=== PATIENT | female | born 1970 | race Caucasian/White ===

== ENCOUNTER 2021-01-29 21:35 | Emergency (ER) | payer SELFPAY ==
[2021-01-29 21:42] VITALS: BP 160/96; PULSE 68; RESP 18; TEMP 36.7; O2SAT 98; BMI 38.0
--- NOTE | 2021-01-29 21:55 | ED_ITS ---
HPI - General Adult General: Chief complaint: General Medical Stated complaint: rt ear pain,& rt side throat pain Time Seen by Provider: 01/29/21 21:48 Source: patient Mode of arrival: ambulatory Limitations: no limitations History of Present Illness: HPI narrative: 10-year-old female states that she been having a sore throat and some pain in the right side of her neck and ear p ain for last 2 days. States pain sharp in nature denies any difficulty swallowing denies any shortness of breath denies any fever no cough she denies any vomiting or diarrhea she denies any worsening proving factor states pain currently is a 4 out of 10 seems to be worse with eating. Associated symptoms: Deny chest pain, dyspnea, headache(s), nausea, rash or vomiting Review of Systems Const: Denies: fever(s), chills, body aches or change in appetite Eyes: Denies: blurry vision or eye discomfort ENMT: Reports: throat pain and ear or mastoid pain Card: Denies: chest pain Resp: Denies: dyspnea GI: Denies: abdominal pain, nausea, vomiting or diarrhea : Denies: dysuria Musc: Denies: neck pain or back pain Skin/Breast: Denies: rash Neuro: Denies: headache(s) Psych: Denies: depression Josué/Lymph: Denies: easy bruising All/Imm: Denies: urticaria Physical Exam Const: COMMON NORMALS: no acute distress, patient oriented x3 and healthy appearing HENMT: COMMON NORMALS: normocephalic and atraumatic HEAD & SCALP: normocephalic and atraumatic OTHER: Erythema to posterior pharynx does have erythema to the right tympanic membrane as well. Eye: COMMON NORMALS: Equal, round and reactive pupils present and EOMs intact bilaterally PUPIL: Yes Equal, round and reactive pupils present Neck/C-Spine: COMMON NORMALS: full ROM and supple OTHER: Lymph node pa lpated right cervical region no warmth or redness no signs of abscess at this time no difficulty swallowing. Chest: COMMONS NORMALS: normal inspection of the chest and normal palpation of entire chest wall Resp: COMMON NORMALS: normal respiratory effort, No retractions, No use of a ccessory muscles and clear to auscultation bilaterally AUSCULTATION: clear to auscultation bilaterally Cardio: COMMON NORMALS: regular rate, regular rhythm and No murmurs present (Cardio) RATE: regular rate RHYTHM: regular rhythm GI: COMMON NORMALS: Normal to inspection, nondistended, normoactive bowel sounds present, Soft to palpation, non-tender and no masses PALPATION: Yes Soft to palpation Extremity: COMMON NORMALS: normal to inspection and full ROM Neuro: COMMON NORMALS: patient oriented x3, moves all extremities and no focal motor deficits Psych: COMMON NORMALS: mental status grossly normal, Normal thought process present and cooperative THOUGHT PROCESS: Normal thought process present Skin: COMMON NORMALS: no rashes or lesions noted and no wounds GENERAL SKIN EXAM: no rashes or lesions noted Course Vital Signs: Vital signs: Vital Signs Temperature 98.1 F 01/29/21 21:42 Pulse Rate 68 01/29/21 21:42 Respiratory Rate 18 01/29/21 21:42 Blood Pressure 160/96 01/29/21 21:42 Pulse Oximetry 98 01/29/21 21:42 MDM - General Adult MDM Narrative: Medical decision making narrative: Patient presents here with pharyngitis along with otitis media infection. She does have a palpable lymph node to the right side of her neck no signs of any abscess no signs of peritonsillar abscess or retropharyngeal abscess no change of voice here no difficulty with her secretions patient gave Decadron along with antibiotics inf ormed her she has any worsening symptoms including increased swelling to her neck she is return immediately she understands agrees to plan. Discharge Plan Discharge Patient Disposition: Home Clinical Impression: Lymphadenopathy, cervical Pharyngitis Qualifiers: Pharyngitis/tonsillitis etiology: unspecified etiology Qualified Code(s): J02.9 - Acute pharyngitis, unspecified Otitis media Qualifiers: Otitis media type: unspecified Laterality: right Qualified Code(s): H66.91 - Otitis media, unspecified, right ear Condition: Stable Prescriptions: New cephalexin 500 mg capsule 500 mg PO TID 7 Days Qty: 21 RF: 0 Naprosyn 500 mg tablet 500 mg PO BID PRN (Reason: pain) Qty: 20 RF: 0 Discharge Orders: Discharge ED (Routine); Ordered 01/29/21 Ordered By: Elizabeth Campoverde Discharge Diet: Advance as tolerated Discharge Activity: Resume usual activity Patient Instructions: Pharyngitis (ED), Lymphoscintigraphy (DC) Coding Level of Care Code ED Calender Inspector for Jeffrey Guthrie
[2021-01-29] MEDS: dexamethasone 10 mg/mL INJ IM (22:09)
[2021-01-29] MEDS: cephALEXin 500 mg Capsule PO (22:09)
[2021-01-29] MEDS: naproxen 500 mg Tablet PO (22:09)
[2021-01-29 22:30] VITALS: BP 158/94; PULSE 69; RESP 18; TEMP 36.7; O2SAT 98
== END 2021-01-29 22:32 | disposition home or self-care (01) ==
PROVIDERS: Emergency Provider Emergency Medicine
DX: J02.9 Acute pharyngitis, unspecified (principal); H66.91 Otitis media, unspecified, right ear; R59.1 Generalized enlarged lymph nodes
CPT/HCPCS: 96372; 99283; J1100

== ENCOUNTER 2021-03-25 09:16 | Outpatient (CLI) | payer OTHER, SELFPAY ==
--- NOTE | 2021-03-25 09:30 | MM_ITS ---
WS: [id number] BILATERAL DIGITAL DIAGNOSTIC MAMMOGRAM MAMMOGRAPHY WITH CAD CLINICAL INFORMATION: LT BREAST PAIN;FIBROCYSTIC BREAST CHANGES TECHNIQUE: Bilateral CC, MLO, and ML views. FINDINGS: Scattered fibroglandular densities bilaterally. Vascular calcification. No suspicious focal mass, asy mmetry, calcifications, or architectural distortion. Ultrasound is pending. ULTRASOUND BREAST BILATERAL TECHNIQUE: Ultrasound bilateral breast focused area of concern. CLINICAL INFORMATION: LT BREAST PAIN;FIBROCYSTIC BREAST CHANGES COMPARISON: None. FINDINGS: Ultrasound bilateral breasts. Ultrasound RIGHT breast at the 3-9 o'clock position and ultrasound LEFT breast at the 3-9 o'clock positions. Dense underlying parenchymal tissue. No cystic or solid lesions . No suspicious findings. MM/[place] [id number] IMPRESSION: BI-RADS: 2-Benign FOLLOW UP: 1 Year Follow-up Recommend return to annual screening mammography.
== END 2021-03-25 09:17 | disposition home or self-care (01) ==
PROVIDERS: Visit Provider Nurse Practitioner Family
DX: N64.4 Mastodynia (principal); N60.19 Diffuse cystic mastopathy of unspecified breast
CPT/HCPCS: 76642; 77066

== ENCOUNTER → 2023-03-30 09:54 | Outpatient (BNVA) | payer MEDICAID, SELFPAY | PROVIDERS: PCP Nurse Practitioner Family; Visit Provider Surgery | DX: Z12.11 Encounter for screening for malignant neoplasm of colon (principal) | CPT/HCPCS: 99024; 99213 ==

== ENCOUNTER 2023-07-01 06:44 | Day surgery (SDC) | payer MEDICAID, SELFPAY ==
--- NOTE | 2023-07-01 05:57 | W.PM.OPSFHP ---
Same Day Surgery H&P Indication for Procedure/HPI DATE OF PROCEDURE: July 01, 2023 CHIEF COMPLAINT/INDICATIONFOR SURGICAL PROCEDURE: danyell na dneed for screening colonoscopy PREOP DIAGNOSIS: gerd and need for screening colonoscopy PLANNED PROCEDURE: Operation Date: 07/01/23 07:40 Proposed Procedures p [id number] egd [id number] colon G0121 screen colon A risk Z12.11,K21.9(Not Applicable) - Sea Álvarez MD s Colonoscopy(Not Applicable) - Sea Álvarez MD Medications/Allergies* Home Medications Medication Instructions Recorded Confirmed Type cyclobenzaprine 5 mg tablet 5 mg PO TID PRN Muscle Spasm 11/18/22 06/30/23 History albuterol sulfate 90 mcg/actuation 1 inh inhalation QID PRN Shortness 03/30/23 06/30/23 History aerosol inhaler Of Breath Allergies/Adverse Reactions Allergy/AdvReac Type Severity Reaction Status Date / Time adhesive tape Allergy ALGY-Rash Verified 03/30/23 10:23 morphine Allergy Unknown Verified 03/30/23 10:23 poison henrik extract Allergy ALGY-Rash Verified 03/30/23 10:52 fiber glass Allergy ALGY-Rash Uncoded 03/30/23 10:23 Pertinent History/Comorbid Conditions* Social History Smoking and tobacco/nicotine status: never used tobacco/nicotine Alcohol intake: never Pertinent Exam Findings alert, oriented x 3, clear to auscultation bilaterally and regular rate & rhythm Recommendations Surgery/Procedure today Coding Level of Care Code Acute Code for Chg Fwd
[2023-07-01 07:01] VITALS: BP 143/97; PULSE 63; RESP 16; TEMP 36.4; O2SAT 97; BMI 36.8
--- NOTE | 2023-07-01 07:13 | ANES.PREANE2 ---
Pre-Anesthetic Assessment Height/Weight: Height 1.7 m Weight 106.594 kg Temp Pulse Resp BP Pulse Ox O2 Del Method 97.5 F L 63 16 143/97 97 Room Air 07/01/23 07:01 07/01/23 07:01 07/01/23 07:01 07/01/23 07:01 07/01/23 07:01 07/01/23 07:01 Preop Diagnosis: gerd and need for screening colonoscopy Operation Date: 07/01/23 07:40 Proposed Procedures p [id number] egd [id number] colon G0121 screen colon A risk Z12.11,K21.9(Not Applicable) - Sea Álvarez MD s Colonoscopy(Not Applicable) - Sea Álvarez MD Familial anesthetic complications: none Was Beta Adriana taken within 24 hours: N/A Was Clonidine taken within 24 hours: N/A Last intake: Intake Last Liquid Date 06/30/23 Last Liquid Time 22:00 Last Solid Date 06/29/23 Last Solid Time 18:00 Social No alcohol and No tobacco Exam alert, oriented x 3, clear to auscultation bilaterally and regular rate & rhythm Airway Submandibular: within normal limits Cervical ROM: within normal limits Mallampati: Class II Dentition: full Pulmonary Exertional Dyspnea CV/HEM Hypertension None reported Hepatic None reported GI Gastroesophageal Reflux Disease Metabolic Hyperlipidemia and Morbid Obesity [facility] Lower Back Pain Anesthetic Plan ASA status: 2 Anesthesia: MAC Risk of > 500 ml blood loss (7ml/kg in children): No Medications/Allergies Home Medications Medication Instructions Recorded Confirmed Last Taken Type cyclobenzaprine 5 mg tablet 5 mg PO TID PRN Muscle Spasm 11/18/22 07/01/23 1 Month Ago History ~06/01/23 albuterol sulfate 90 mcg/actuation 1 inh inhalation QID PRN Shortness 03/30/23 07/01/23 6 Months Ago History aerosol inhaler Of Breath ~12/31/22 pantoprazole 40 mg tablet,delayed 40 mg PO BID 6 weeks #84 tabs 03/30/23 06/30/23 06/30/23 Rx release (Protonix) Allergies Allergy/AdvReac Type Severity Reaction Status Date / Time adhesive tape Allergy ALGY-Rash Verified 03/30/23 10:23 morphine Allergy Unknown Verified 03/30/23 10:23 poison henrik extract Allergy ALGY-Rash Verified 03/30/23 10:52 fiber glass Allergy ALGY-Rash Uncoded 03/30/23 10:23 [facility] Anesthesia Social History Smoking and tobacco/nicotine status: never used tobacco/nicotine Alcohol intake: never Data Anesthesia Cardiac Studies: No Data to Display
[2023-07-01 07:14] LABS: OR HCG Qualitative Urine Negative (Negative)
[2023-07-01] MEDS: sodium chloride 0.9% 1,000 ML 30 ML IV (07:17)
[2023-07-01 08:45] VITALS: BP 114/69; PULSE 58; RESP 12; TEMP 36.3; O2SAT 98
[2023-07-01 09:18] VITALS: BP 128/86; PULSE 61; RESP 18; O2SAT 100
--- NOTE | 2023-07-01 09:30 | ANE.PACU2 ---
Inpatient post-anesthesia follow up: Airway intact: Yes Vital signs: Temperature 97.3 F Pulse Rate 61 Respiratory Rate 18 Blood Pressure 128/86 Pulse Oximetry 100 Oxygen Delivery Me thod Room Air Oxygen Flow Rate Fraction of Inspir ed Oxygen Hydration adequate: Yes Nausea and vomiting: No Pain level: 1 Mental status: Baseline
== END 2023-07-01 09:30 | disposition home or self-care (01) ==
PROVIDERS: Anesthesiology; PCP Nurse Practitioner Family; Visit Provider Surgery
PROC: 0DJ08ZZ Inspection of Upper Intestinal Tract, Via Natural or Artificial Opening Endoscopic (ICD-10-PCS; CPT 43235; principal; 2023-07-01 07:40)
PROC: 0DJD8ZZ Inspection of Lower Intestinal Tract, Via Natural or Artificial Opening Endoscopic (ICD-10-PCS; CPT 45378; 2023-07-01 07:40)
DX: Z12.11 Encounter for screening for malignant neoplasm of colon (principal); K21.9 Gastro-esophageal reflux disease without esophagitis; K44.9 Diaphragmatic hernia without obstruction or gangrene; K29.50 Unspecified chronic gastritis without bleeding; D12.8 Benign neoplasm of rectum; D12.5 Benign neoplasm of sigmoid colon; I10 Essential (primary) hypertension; E78.5 Hyperlipidemia, unspecified; E66.01 Morbid (severe) obesity due to excess calories; Z68.36 Body mass index [BMI] 36.0-36.9, adult
CPT/HCPCS: 43239; 43251; 45380; 45385; 81025; 88305; 88342; J2704; J7030

== ENCOUNTER 2023-11-23 16:09 | Outpatient (CLI) | payer MEDICAID, SELFPAY ==
--- NOTE | 2023-11-23 16:13 | XRR_ITS ---
PROCEDURE INFORMATION: Exam: XR Right Foot Exam date and time: 11/23/2023 4:34 PM Age: 53 years old Clinical indication: Pain; Foot; Right; Additional info: Foot joint pain TECHNIQUE: Imaging protocol: Radiologic exam of the right foot. Views: 3 or more views. COMPARISON: No relevant prior studies available. FINDINGS: Bones/joints: Heel spur. Os peroneus. Mild scattered degenerative change. Soft tissues: See Bones/joints finding. XR/XR foot RT min 3V* [id number] IMPRESSION: No acute findings.
== END 2023-11-23 16:10 | disposition home or self-care (01) ==
LOC: RAD 16:10
PROVIDERS: PCP Nurse Practitioner Family; Visit Provider Nurse Practitioner Family
DX: M79.671 Pain in right foot (principal)
CPT/HCPCS: 73630

== ENCOUNTER 2024-06-03 22:05 | Emergency (ER) | payer MEDICAID, SELFPAY ==
[2024-06-03 22:13] VITALS: BP 143/77; PULSE 54; RESP 18; TEMP 36.7; O2SAT 98; BMI 38.7
[2024-06-03 23:46] VITALS: BP 137/88; PULSE 55; O2SAT 96
--- NOTE | 2024-06-03 23:52 | ED_ITS ---
HPI - URI/Sore Throat General: Chief Complaint: Ear Stated Complaint: Throat sore tongue discolored Time Seen by Provider: 06/03/24 23:18 History of Present Illness: 53-year-old female comes in today with c omplaints of a white coating to her tongue and sore throat. Patient appears nontoxic. Patient reports no recent infection or use of steroids or use of inhaler. Related Data Home Medications ?Medication ?Instructions ?Recorded ?Confirmed cyclobenzaprine 5 mg tablet 5 mg PO TID PRN Muscle Spa sm 11/18/22 01/29/24 albuterol sulfate 90 mcg/actuation 1 inh inhalation QI D PRN Shortness 03/30/23 01/29/24 aerosol inhaler Of Breath Previous Rx's ?Medication ?Instructions ?Recorded pantoprazole 40 mg tablet,delayed 40 mg PO ONCE 30 day s #30 tabs 07/14/23 release (Protonix) nystatin 100,000 unit/mL oral 4 ml buccal 5XD 7 days # 140 mL 06/04/24 suspension Allergies Allergy/AdvReac Type Severity Reaction Status Date / Time adhesive tape Allergy ALGY-Rash Verified 01/29/24 16:07 morphine Allergy Unknown Verified 01/29/24 16:07 poison henrik extract Allergy ALGY-Rash Verified 01/29/24 16:07 fiber glass Allergy ALGY-Rash Uncoded 01/29/24 16:07 Review of Systems General: Reports: 10 or more systems reviewed and unremarkable except in HPI and below PFSH ED PFSH: Social History Smoking and tobacco/nicotine status: never used tobacco/nicotine Alcohol intake: never Physical Exam Const: COMMON NORMALS: alert HENMT: COMMON NORMALS: normocephalic HEAD & SCALP: normocephalic MOUTH: other (Thrush) Neck/C-Spine: COMMON NORMALS: full ROM Resp: COMMON NORMALS: normal respiratory effort Cardio: COMMON NORMALS: regular rate RATE: regular rate GI: COMMON NORMALS: non-tender Back/Pelvis: COMMON NORMALS: thoracic and lumbar spine normal to inspection Extremity: COMMON NORMALS: full ROM Neuro: SENSORIUM/ORIENTATION: Yes alert Skin: COMMON NORMALS: turgor normal GENERAL SKIN EXAM: turgor normal Course Vital Signs: Vital signs: Vital Signs Temperature 98.0 F 06/03/24 22:13 Pulse Rate 55 L 06/03/24 23:46 Respiratory Rate 18 06/03/24 22:13 Blood Pressure 137/88 06/03/24 23:46 Pulse Oximetry 96 06/03/24 23:46 Oxygen Delivery Me thod Room Air 06/03/24 22:13 MDM - URI/Sore Throat Medical Decision Making 53-year-old female comes in today with a white coating to her tongue. Patient reports noticing it tonight. Patient also has a mild sore throat. On exam we note white coating to the tongue and posterior pharynx suggesting thrush. Differential diagnosis includes not limited to stomatitis, candidiasis, strep pharyngitis. Strep test was negative. Patient has thrush. Patient was treated with nystatin suspension. Patient recommended to follow-up with primary care for further instructions. Lab Data Laboratory Results POC Glucose 95 mg/dL (70-110) 06/03/24 23:52 Group A Strep Rapid Negative (Negative) 06/03/24 23:54 No radiology studies performed this visit Discharge Plan Discharge Patient Disposition: Home Clinical Impression: Oral thrush Condition: Stable Prescriptions: New nystatin 100,000 unit/mL suspension 4 ml buccal 5XD 7 Days Qty: 140 0RF Rx Instructions: swish to ensure whole mouth covered and swallow No Action pantoprazole [Protonix] 40 mg tablet,delayed release (DR/EC) 40 mg PO ONCE 30 Days Qty: 30 2RF cyclobenzaprine 5 mg tablet 5 mg PO TID PRN (Reason: Muscle Spasm) albuterol sulfate 90 mcg/actuation HFA aerosol inhaler 1 inh inhalation QID PRN (Reason: Shortness Of Breath) Discharge Orders: Discharge ED (Routine); Ordered 06/04/24 Ordered By: Moise Justin Referrals: Mallory Chun FNP [Primary Care Provider] - Discharge Diet: Usual diet Discharge Activity: Increase activity as tolerated Patient Instructions: Oral Candidiasis (ED) Activity Restrictions/Additional Instructions: Follow-up with primary care in 1 week for recheck. Print Language: [place]an Coding Level of Care Code ED Customer Resolution Specialist for Jeffrey Guthrie
[2024-06-03 23:58] LABS: Glucose Point of Care 95 mg/dL (70-110)
[2024-06-04 00:06] LABS: Rapid Strep A Test Negative (Negative)
[2024-06-04 00:34] VITALS: BP 148/96; PULSE 54; O2SAT 96
== END 2024-06-04 00:35 | disposition home or self-care (01) ==
PROVIDERS: Emergency Provider Nurse Practitioner Family; PCP Nurse Practitioner Family
DX: B37.0 Candidal stomatitis (principal)
CPT/HCPCS: 36416; 82962; 87081; 87880; 99283

== ENCOUNTER 2024-10-11 07:59 | Outpatient (CLI) | payer MEDICAID, SELFPAY ==
--- NOTE | 2024-10-11 | MM_ITS ---
WS: [id number] BILATERAL SCREENING DIGITAL TOMOSYNTHESIS MAMMOGRAM WITH CAD HISTORY: ANNUAL SCREENING COMPARISON: 03/25/2021 Bilateral CC and MLO views with tomosynthesis and synthetic mammography submitted. Computer aided detection analyzed. Breast composition: There are scattered areas of fibroglandular density. No suspicious masses, microcalcifications or architectural distortion. MM/MM scr BI tomosynthesis [id number] IMPRESSION: BI-RADS: 2 - Benign. FOLLOW UP: 1 Year Follow-up
== END 2024-10-11 08:00 | disposition home or self-care (01) ==
LOC: RAD 08:00
PROVIDERS: PCP Nurse Practitioner Family; Visit Provider Nurse Practitioner Family
DX: Z12.31 Encounter for screening mammogram for malignant neoplasm of breast (principal)
CPT/HCPCS: 77063; 77067

== ENCOUNTER 2024-10-13 19:37 | Emergency (ER) | payer MEDICAID, SELFPAY ==
[2024-10-13 19:40] VITALS: BP 156/95; PULSE 70; RESP 16; TEMP 36.8; O2SAT 98; BMI 35.5
--- NOTE | 2024-10-13 20:03 | XRR_ITS ---
PROCEDURE INFORMATION: Exam: XR Chest Exam date and time: 10/13/2024 8:13 PM Age: 54 years old Clinical indication: Shortness of breath; C/O SOB TECHNIQUE: Imaging protocol: Radiologic exam of the chest. Views: 1 view. COMPARISON: CR XR chest 2V* [id number] 01/13/2018 9:55 PM FINDINGS: Lungs: Unremarkable. No consolidation. Pleural spaces: Unremarkable. No pleural effusion. No pneumothorax. Heart/Mediastinum: Unremarkable. No cardiomegaly. Bones/joints: Unremarkable. XR/XR chest 1V portable [id number] IMPRESSION: No acute findings.
[2024-10-13 20:16] LABS: Glucose Urine UA Negative (Normal); Nitrate Urine Negative (Negative); Specific Gravity, Urine 1.025 (1.005-1.030)
[2024-10-13 20:21] LABS: Add Urine Microscopic? YES
[2024-10-13 20:35] VITALS: PULSE 65; RESP 18; O2SAT 98
[2024-10-13 20:42] VITALS: PULSE 68
[2024-10-13 20:55] LABS: Respiratory Syncytial Virus Ce NEGATIVE (Negative); SARS-CoV-2 PCR NEGATIVE (Negative)
--- NOTE | 2024-10-13 21:03 | ED_ITS ---
HPI - URI/Sore Throat General: Chief Complaint: Upper Respiratory Infection Stated Complaint: May have Bronchitis Time Seen by Provider: 10/13/24 19:40 Source: patient Mode of arrival: ambulatory Limitations: no limitations History of Present Illness: Patient is a 54-year-old female who presents emergency department complaining of upper respiratory symptoms for the past 2 days. Notes that she has started to have a sore throat, congestion in her chest, productive cough, wheezing, and shortness of breath. Denies any pertinent past medical history. Denies any exposure to anyone with COVID or other viral illness. States that she think she has bronchitis, denies history of asthma or COPD or smoking. No fever, abdominal pain, nausea, vomiting, or diarrhea. MD elicited complaint: cough, sore throat and rhinorrhea Onset (ago): day(s) Consistency: constant Severity: mild Associated symptoms: Deny abdominal pain, chills, chest pain, diarrhea, ear or mastoid pain, fever(s), headache(s), nausea or vomiting Related Data Home Medications ?Medication ?Instructions ?Recorded ?Confirmed cyclobenzaprine 5 mg tablet 5 mg PO TID PRN Muscle Spa sm 11/18/22 01/29/24 albuterol sulfate 90 mcg/actuation 1 inh inhalation QI D PRN Shortness 03/30/23 01/29/24 aerosol inhaler Of Breath Previous Rx's ?Medication ?Instructions ?Recorded pantoprazole 40 mg tablet,delayed 40 mg PO ONCE 30 day s #30 tabs 07/14/23 release (Protonix) albuterol sulfate 90 mcg/actuation 1 inh inhalation Q6 H PRN shortness 10/13/24 aerosol inhaler of breath or wheezing #6.7 g nella azithromycin 500 mg tablet 500 mg PO DAILY 5 days #5 t abs 10/13/24 Allergies Allergy/AdvReac Type Severity Reaction Status Date / Time adhesive tape Allergy ALGY-Rash Verified 01/29/24 16:07 morphine Allergy Unknown Verified 01/29/24 16:07 poison henrik extract Allergy ALGY-Rash Verified 01/29/24 16:07 fiber glass Allergy ALGY-Rash Uncoded 01/29/24 16:07 Review of Systems General: Reports: 10 or more systems reviewed and unremarkable except in HPI and below Const: Denies: fever(s), chills or fatigue Eyes: Denies: change in vision ENMT: Denies: throat pain, ear or mastoid pain or nasal discharge Card: Denies: chest pain, palpitations, swelling of feet/ankles or lightheadedness Resp: Reports: dyspnea, productive cough, wheezing and chest congestion GI: Denies: abdominal pain, nausea, vomiting, diarrhea or constipation : Denies: flank pain, difficulty voiding, dysuria or urinary frequency Musc: Denies: neck pain, back pain or joint pain Skin/Breast: Denies: rash Neuro: Denies: headache(s), numbness in extremities or weakness in extremities PFSH ED PFSH: Social History Smoking and tobacco/nicotine status: never used tobacco/nicotine Alcohol intake: never Physical Exam Const: COMMON NORMALS: no acute distress and no limitations GENERAL APPEARANCE: cooperative, comfortable and well developed ORIENTATION/CONSCIOUSNESS: Yes awake HENMT: COMMON NORMALS: normocephalic, atraumatic and hearing grossly normal bilaterally HEAD & SCALP: normocephalic and atraumatic Eye: COMMON NORMALS: Equal, round and reactive pupils present, EOMs intact bilaterally and conjunctivae normal CONJUNCTIVA: Yes conjunctivae normal PUPIL: Yes Equal, round and reactive pupils present Neck/C-Spine: COMMON NORMALS: full ROM, supple and no JVD Resp: COMMON NORMALS: normal respiratory effort, No retractions, No use of accessory muscles and clear to auscultation bilaterally AUSCULTATION: clear to auscultation bilaterally OTHER: No tachypnea or acute respiratory distress Cardio: COMMON NORMALS: no JVD, regular rate, regular rhythm, No clicks present (Cardio), No murmurs present (Cardio) and No rub (Cardio) RATE: regular rate RHYTHM: regular rhythm GI: COMMON NORMALS: Normal to inspection, nondistended, normoactive bowel sounds present, Soft to palpation and non-tender AUSCULTATION: Yes normoactive bowel sounds PALPATION: Yes Soft to palpation RECTAL EXAM: deferred Extremity: COMMON NORMALS: normal to inspection, full ROM and capillary refill normal Psych: COMMON NORMALS: mental status grossly normal and Normal thought process present THOUGHT PROCESS: Normal thought process present Skin: COMMON NORMALS: no rashes or lesions noted GENERAL SKIN EXAM: no rashes or lesions noted Course Vital Signs: Vital signs: Vital Signs Temperature 98.2 F 10/13/24 19:40 Pulse Rate 72 10/13/24 21:14 Respiratory Rate 16 10/13/24 21:14 Blood Pressure 156/95 10/13/24 19:40 Pulse Oximetry 98 10/13/24 21:14 Oxygen Delivery Me thod Room Air 10/13/24 20:35 MDM - URI/Sore Throat Medical Decision Making Patient presenting for upper respiratory symptoms for the past 2 days. Exam was unremarkable, overall nontoxic-appearing and vitals have been stable throughout ED course. No pertinent past medical history was reported. Chest x-ray did not show any pneumonia or other focal consolidation. Viral swab was negative. With her reporting productive cough, but overall stable condition, we will treat for acute bronchitis with azithromycin. She also was given breathing treatment here in the ED and states this did make her feel better, this could be an element of reactive airway disease so we will prescribe her an albuterol inhaler. Return precautions are given, she will follow-up primary care early next week. Lab Data Radiology Impressions Chest X-Ray 10/13/24 20:03 IMPRESSION: No acute findings. Laboratory Results Urine Color Yellow (Yellow) 10/13/24 20:05 Urine Appearance Clear (CLEAR) 10/13/24 20:05 Urine pH 6.0 (5-7) 10/13/24 20:05 Ur Specific Jackson 1.025 (1.005-1.030) 10/13/24 20:05 Urine Protein Negative (Negative) 10/13/24 20:05 Urine Glucose (UA) Negative (Normal) 10/13/24 20:05 Urine Ketones Trace (Negative) 10/13/24 20:05 Urine Blood Trace (Negative) A 10/13/24 20:05 Urine Nitrate Negative (Negative) 10/13/24 20:05 Urine Bilirubin Negative (Negative) 10/13/24 20:05 Urine Urobilinogen 1.0 mg/dL (Negative) 10/13/24 20:05 Ur Leukocyte Esterase Trace (Negative) A 10/13/24 20:05 Urine RBC 0-2 /hpf (0-2) 10/13/24 20:05 Urine WBC 0-5 /hpf (0-5) 10/13/24 20:05 Ur Squamous Epith Cells 0-5 /hpf (0-5) 10/13/24 20:05 Amorphous Sediment Not Reportable 10/13/24 20:05 Urine Bacteria None seen /hpf (NONE) 10/13/24 20:05 Hyaline Casts 0-4 /lpf H 10/13/24 20:05 Influenza A (PCR) Negative (Negative) 10/13/24 20:05 Influenza Type B (PCR) Negative (Negative) 10/13/24 20:05 RSV (PCR) Negative (Negative) 10/13/24 20:05 SARS-CoV-2 (PCR) Negative (Negative) 10/13/24 20:05 All radiology interpretation(s) finalized by discharge Discharge Plan Discharge Patient Disposition: Home Clinical Impression: Bronchitis RAD (reactive airway disease) Qualifiers: Asthma severity: mild Asthma persistence: intermittent Asthma complication type: with acute exacerbation Qualified Code(s): J45.21 - Mild intermittent asthma with (acute) exacerbation Condition: Stable Prescriptions: New albuterol sulfate 90 mcg/actuation HFA aerosol inhaler 1 inh inhalation Q6H PRN (Reason: shortness of breath or wheezing) Qty: 6.7 0RF azithromycin 500 mg tablet 500 mg PO DAILY 5 Days Qty: 5 0RF No Action pantoprazole [Protonix] 40 mg tablet,delayed release (DR/EC) 40 mg PO ONCE 30 Days Qty: 30 2RF cyclobenzaprine 5 mg tablet 5 mg PO TID PRN (Reason: Muscle Spasm) albuterol sulfate 90 mcg/actuation HFA aerosol inhaler 1 inh inhalation QID PRN (Reason: Shortness Of Breath) Discharge Orders: Discharge ED (Routine); Ordered 10/13/24 Ordered By: [place] Referrals: Cha Koch FNP [Primary Care Provider, Primary Care Provider] Patient Instructions: Patient Portal & Alok Instructions Activity Restrictions/Additional Instructions: Bronchitis Discharge Instructions Discharge Instructions for Acute Bronchitis with Reactive Airways Disease You have been diagnosed with acute bronchitis and reactive airways disease. This means you have inflammation in your airways, which can cause cough, wheezing, and shortness of breath. Most cases of acute bronchitis are caused by viruses, and symptoms usually improve on their own within 2?3 weeks.[1] https://www.acpjournals.org/doi/abs/10.7326/H54-9441?url_ver=Z39&rfr_id= alix:rid:crossref.org&rfr_dat=cr_pub%20%200pubmed [2] https://www.nejm.org/doi/full/10.1056/DFQKrr009268 [3] https://pubmed.ncbi.nlm.nih.gov/14222354 [4] https://pubmed.ncbi.nlm.nih.gov/30449431 Medications: - Albuterol Inhaler: Use as directed for relief of wheezing or shortness of breath. Albuterol is a bronchodilator that helps open your airways and can reduce cough and breathing difficulty, especially if you have wheezing or a history of asthma-like symptoms.[3] https://pubmed.ncbi.nlm.nih.gov/77576311 [5] https://pubmed.n i.nlm.nih.gov/2710518 - Usual instructions: 2 puffs every 4?6 hours as needed for symptoms. - If you need it more often than every 4 hours, or if symptoms worsen, contact your healthcare provider. - Azithromycin (Z-Jkae): Take as prescribed. While antibiotics are not usually recommended for acute bronchitis unless there is a concern for bacterial infection or other specific indications, your provider has prescribed azithromycin based on your individual situation.[1] https://www.acpjournals.org/doi/abs/10.7326/F19-7939?url_ver=Z39&rfr_ id=alix:rid:crossref.org&rfr_dat=cr_pub%20%200pubmed [2] https://www.nejm.org/doi/full/10.1056/WYVKgx285347 [4] https://pubmed.ncbi.nlm.nih.gov/77100148 [6] https://pubmed.ncbi.nlm.nih.gov/91004416 [7] https://jamanetwork.com/journals/jamainternalmedicine/fullarticle/10.1001/jamain ternmed.2016.5664?utm_source=openevidence&utm_medium=referral - Common dosin mg once daily for 5 days. - Take the full course, even if you start to feel better. - Possible side effects include stomach upset, diarrhea, and allergic reactions. If you develop severe diarrhea, rash, or trouble breathing, seek medical attention. What to Expect: - Cough may last for 2?3 weeks, and sometimes longer.[2] https://www.nejm.org/doi/full/10.1056/LHHIfz746282 [3] https://p ubmed.ncbi.nlm.nih.gov/01252179 - Most people start to feel better within a week, but full recovery can take longer. - Albuterol may help with cough and breathing symptoms, especially if you have wheezing.[3] https://pubmed.ncbi.nlm.nih.gov/48167058 [5] https://pubmed.ncbi.nlm.nih.gov/0385737 - Antibiotics like azithromycin do not usually speed recovery for most cases of bronchitis, but may be used in select cases.[1] https://www.acpjournals.org/doi/abs/1026J31-8969?url_ver=Z&rfr_id= alix:rid:ScaleGridref.org&rfr_dat=cr_pub%20%200pubmed [4] https://pubmed.ncbi.nlm.nih.gov/68791710 [6] https://pubmed.ncbi.nlm.nih.gov/07467895 [7] https://jamanetwork.com/journals/jamainternalmedicine/fullarticle/10.1001/jamain ternmed.2016.5664?utm_source=openevidence&utm_medium=referral Symptom Management: - Rest and drink plenty of fluids. - Phms-whb-sjqnsdz medications (such as acetaminophen or ibuprofen) can help with fever or discomfort. - Cough suppressants or expectorants may provide modest relief, but evidence for their benefit is limited.[1] https://www.acpjournals.org/doi/abs/1026T93-4684?url_ver=Z2002&rfr_id=alix:rid:crossref.org&rfr_dat=cr_pub%20%200pubmed [3] https://pubmed.ncbi.nlm.nih.gov/68153974 - Avoid smoke and other irritants. When to Seek Medical Attention: - Difficulty breathing or shortness of breath that does not improve with albuterol. - High fever (over 102?F) that lasts more than 3 days. - Chest pain, confusion, or feeling faint. - Coughing up blood. - Symptoms that worsen or do not improve after 2?3 weeks. Follow-Up: - Schedule a follow-up appointment if symptoms persist beyond 3 weeks, worsen, or if you have concerns about your medications. - If you have a history of asthma or chronic lung disease, continue your regular medications as directed. Important Notes: - Finish all prescribed medications. - Do not share your medications with others. - If you experience any side effects from your medications, contact your healthcare provider. If you have any questions or concerns, please contact your healthcare provider. [1] https://www.acpjournals.org/doi/abs/10.7326/W62-5456?url_ver=Z39.88-2003&rfr_id= alix:rid:crossref.org&rfr_dat=cr_pub%20%200pubmed [2] https://www.nejm.org/doi/full/10.1056/ZUNLsy299695 [3] https://pubmed.ncbi.nlm.nih.gov/96209433 [4] https://pubmed.ncbi.nlm.nih.gov/42217437 [6] https://pubmed.ncbi.nlm.nih.gov/22863037 [7] http s://jamanetwork.com/journals/jamainternalmedicine/fullarticle/10.1001/jamaintern med.2016.5664?utm_source=openevidence&utm_medium=referral [5] https://pubmed.ncbi.nlm.nih.gov/4256828 References * Appropriate Antibiotic Use for Acute Respiratory Tract Infection in Adults: Advice for High-Value Care From the [place] [employer] and the Centers for Disease Control and Prevention https://www.acpjournals.org/doi/abs/10.7326/I64-0552?url_ver=Z39.88-2003&rfr_i d=alix:rid:crossref.org&rfr_dat=cr_pub%20%200pubmed . David HOLMAN, Ginger LA, Josi A. Annals of Internal Medicine. 2016;164(6):425-34. doi:10.7326/G65-8531. * Acute Bronchitis https://www.nej.org/doi/full/10.1056/AZZDdl472389 . Jarrod RP, Elsa BARKER. The [place] Journal of Medicine. 2006;355(20):2125-30. doi:10.1056/JLUMra706782. * Principles of Appropriate Antibiotic Use for Treatment of Uncomplicated Acute Bronchitis: Background https://pubmed.ncbi.nlm.nih.gov/18580763 . Bashir R, Sangita JG, Rosa RE, et al. Annals of Emergency Medicine. 2001;37(6):720-7. * Azithromycin for Acute Bronchitis: A Randomised, Double-Blind, Controlled Trial https://pubmed.ncbi.nlm.nih.gov/75290787 . Farnsworth AT, Blanche S, Durairaj L, et al. Lancet ([place], [place]). 2002;359(3870):5513-56. doi:10.1016/G3874-9121(22)41967-5. * A Comparison of Albuterol and Erythromycin for the Treatment of Acute Bronchitis https://pubmed.ncbi.nlm.nih.gov/8488207 . Noam GONG. The Journal of Family Practice. 1990;33(5):476-80. * Azithromycin for Acute Lower Respiratory Tract Infections https://pubmed.ncbi.nlm.nih.gov/92082882 . Luigi M, Panhumberto R, Evelina Mehta. The [place] Database of Systematic Reviews. 2015;(3):XR897650. doi:10.1002/47871211.KZ046803.pub4. * Azithromycin for Acute Exacerbations of Asthma: The MAR[facility]NA Randomized Clinical Trial https://jamanetwork.com/journals /jamainternalmedicine/fullarticle/10.1001/jamainternmed.2016.5664?utm_source=o penevidence&utm_medium=referral . Nehemiah COREAS, Rodolfo M, Moises M, et al. ЕКАТЕРИНА Internal Medicine. 2016;176(11):0318-4253. doi:10.1001/jamainternmed.2016.5664. Print Language: Swedish Coding Level of Care Code ED Skin Specialist for Jeffrey Guthrie
[2024-10-13 21:14] VITALS: PULSE 72; RESP 16; O2SAT 98
== END 2024-10-13 21:30 | disposition home or self-care (01) ==
PROVIDERS: Emergency Provider Physician Assistant; PCP Nurse Practitioner Family
DX: J40 Bronchitis, not specified as acute or chronic (principal); J45.21 Mild intermittent asthma with (acute) exacerbation; Z11.52 Encounter for screening for COVID-19
CPT/HCPCS: 71045; 81001; 87637; 94640; 96372; 99284; J1100; J9999; Q0144

== ENCOUNTER 2024-10-26 09:37 | Outpatient (CLI) | payer MEDICAID, SELFPAY ==
--- NOTE | 2024-10-26 09:43 | XR_ITS ---
WS: [id number] XR chest 2V* [id number] REASON FOR EXAM: FOLLOW UP EXAMINATION AFTER COMPLETED TREATMENT FOR MELANOMA FINDINGS: The chest is unchanged compared to 10/13/2024. Calcified granulomatous disease bilaterally. No acute pulmonary parenchymal or pleural abnormality. No lung mass or lung nodule identified. Significant degenerative spondylosis in the mid and lower thoracic spine. XR/XR chest 2V* [id number] IMPRESSION: Stable chest without acute abnormality. No lung nodule or lung mass.
== END 2024-10-26 09:38 | disposition home or self-care (01) ==
LOC: LAB 09:40
PROVIDERS: PCP Nurse Practitioner Family; Visit Provider Nurse Practitioner Family
DX: Z08 Encounter for follow-up examination after completed treatment for malignant neoplasm (principal); Z85.820 Personal history of malignant melanoma of skin; J84.10 Pulmonary fibrosis, unspecified; M47.814 Spondylosis without myelopathy or radiculopathy, thoracic region
CPT/HCPCS: 36415; 71046; 83615